=== PATIENT | male | born 2000 | race African-American/Black ===

== ENCOUNTER 2019-11-16 06:47 | Emergency (ER) | payer OTHER ==
[~2019-11-16] VITALS: Ht 182.9 cm; Wt 105.0 kg
[2019-11-16] MEDS ORDERED: diphenhydrAMINE 50 MG CAP PO ONE (07:15)
[2019-11-16] MEDS ORDERED: predniSONE 20 MG TAB PO ONE (07:15)
[2019-11-16 08:47] VITALS: BP 133/82
[2019-11-16] MEDS ORDERED: PRED20TA PO (08:47)
[2019-11-16] MEDS ORDERED: BENA25CA4 PO (08:47)
== END 2019-11-16 08:54 | disposition home or self-care (01) ==
LOC: M ED 06:47
DX: T78.40XA Allergy, unspecified, initial encounter (principal); Y92.9 Unspecified place or not applicable; Y93.9 Activity, unspecified